=== PATIENT | male | born 1980 | race Asian ===

== ENCOUNTER 2021-07-11 09:32 | Emergency (ER) | payer OTHER ==
[~2021-07-11] VITALS: Ht 180.3 cm; Wt 90.9 kg
[2021-07-11 10:04] VITALS: BP 114/74
== END 2021-07-11 12:15 | disposition left against medical advice (07) ==
LOC: ER 09:32
DX: R11.0 Nausea (principal); Z53.21 Procedure and treatment not carried out due to patient leaving prior to being seen by health care provider

== ENCOUNTER 2021-08-03 11:08 | Outpatient (CLI) | payer OTHER | END 2021-08-03 23:59 | disposition home or self-care (01) | LOC: RAD 11:08 | DX: E29.1 Testicular hypofunction (principal); M51.35 Other intervertebral disc degeneration, thoracolumbar region | CPT/HCPCS: 36415; 72070; 72100; 84402; 84403 ==